=== PATIENT | female | born 1970 | race Caucasian/White ===

== ENCOUNTER 2020-07-14 17:08 | Emergency (ER) | payer MEDICARE, OTHER ==
[2020-07-14 19:29] LABS: RED BLOOD COUNT 4.17 M/UL (4.00-5.10)
[2020-07-14 19:48] LABS: BUN/CREATININE RATIO 16 (0-10)
== END 2020-07-14 20:45 | disposition home or self-care (01) ==
LOC: ER1 17:08
PROVIDERS: Physician Assistant Medical
DX: E11.65 Type 2 diabetes mellitus with hyperglycemia (principal); F17.210 Nicotine dependence, cigarettes, uncomplicated; Z90.49 Acquired absence of other specified parts of digestive tract; Z88.2 Allergy status to sulfonamides
CPT/HCPCS: 80053; 81001; 82009; 85025; 99284